=== PATIENT | male | born 1985 | race Caucasian/White ===

== ENCOUNTER 2017-01-19 17:25 | Emergency (ER) | payer MEDICAID ==
[~2017-01-19] VITALS: Ht 175.3 cm; Wt 101.5 kg
[~2017-01-19 17:25] MED LIST: NO HOME MEDICATIONS; NORCO 325 MG-7.1 TAB PO; PROMETHAZINE12.5 M5 PO
[2017-01-19 17:33] VITALS: BP 131/75; PULSE 104; TEMP 99
[2017-01-19] MEDS ORDERED: PREDNISONE20 MG PO (17:54)
== END 2017-01-19 18:04 | disposition home or self-care (01) ==
LOC: COL.ER 17:25
DX: L23.7 Allergic contact dermatitis due to plants, except food (principal); J45.909 Unspecified asthma, uncomplicated; F17.210 Nicotine dependence, cigarettes, uncomplicated
CPT/HCPCS: J7512

== ENCOUNTER 2017-07-03 14:25 | Emergency (ER) | payer MEDICAID ==
[~2017-07-03] VITALS: Ht 180.3 cm; Wt 113.6 kg
[~2017-07-03 14:25] MED LIST changes: +PREDNISONE20 MG PO
[2017-07-03 14:32] VITALS: BP 133/94; PULSE 73; TEMP 98.3
== END 2017-07-03 18:10 | disposition home or self-care (01) ==
LOC: COL.ER 14:25
DX: S69.92XA Unspecified injury of left wrist, hand and finger(s), initial encounter (principal); S69.91XA Unspecified injury of right wrist, hand and finger(s), initial encounter; F17.210 Nicotine dependence, cigarettes, uncomplicated; W22.01XA Walked into wall, initial encounter

== ENCOUNTER 2018-07-10 13:47 | Emergency (ER) | payer SELFPAY ==
[~2018-07-10] VITALS: Ht 180.3 cm; Wt 122.7 kg
[2018-07-10 13:51] VITALS: BP 138/90; TEMP 98.9
[2018-07-10] MEDS ORDERED: PREDNISONE20 MG PO (15:29)
[2018-07-10 15:36] VITALS: PULSE 88
== END 2018-07-10 15:40 | disposition home or self-care (01) ==
LOC: COL.ER 13:47
DX: J20.9 Acute bronchitis, unspecified (principal); J45.909 Unspecified asthma, uncomplicated; F17.210 Nicotine dependence, cigarettes, uncomplicated
CPT/HCPCS: J7512

== ENCOUNTER 2019-01-18 18:17 | Emergency (ER) | payer SELFPAY ==
[~2019-01-18] VITALS: Ht 180.3 cm; Wt 81.8 kg
[2019-01-18 18:20] VITALS: BP 129/65
[2019-01-18] MEDS ORDERED: EXCEDRIN1 TAB PO (18:43)
[2019-01-18] MEDS ORDERED: NORCO 325 MG-51 TAB PO (19:13)
[2019-01-18 21:12] VITALS: PULSE 65; TEMP 98
== END 2019-01-18 21:03 | disposition home or self-care (01) ==
LOC: COL.ER 18:17
DX: S62.327A Displaced fracture of shaft of fifth metacarpal bone, left hand, initial encounter for closed fracture (principal); F17.210 Nicotine dependence, cigarettes, uncomplicated; W22.8XXA Striking against or struck by other objects, initial encounter; Y92.009 Unspecified place in unspecified non-institutional (private) residence as the place of occurrence of the external cause
CPT/HCPCS: Q4021

== ENCOUNTER 2021-05-04 20:47 | Emergency (ER) | payer BC ==
[~2021-05-04] VITALS: Ht 180.3 cm; Wt 95.5 kg
[~2021-05-04 20:47] MED LIST changes: +EXCEDRIN1 TAB PO; +NORCO 325 MG-51 TAB PO
[2021-05-04 20:56] VITALS: TEMP 97.2
[2021-05-04] MEDS ORDERED: NAPROSYN500 MG PO (22:03)
[2021-05-04 22:15] VITALS: BP 124/81; PULSE 72
== END 2021-05-04 22:15 | disposition home or self-care (01) ==
LOC: COL.ER 20:47
DX: M25.532 Pain in left wrist (principal); M25.522 Pain in left elbow

== ENCOUNTER 2021-06-06 20:48 | Emergency (ER) | payer BC ==
[~2021-06-06] VITALS: Ht 180.3 cm; Wt 122.7 kg
[~2021-06-06 20:48] MED LIST changes: +NAPROSYN500 MG PO
[2021-06-06 21:06] VITALS: TEMP 97.5
[2021-06-06 22:24] VITALS: BP 126/99; PULSE 83
== END 2021-06-06 22:20 | disposition home or self-care (01) ==
LOC: COL.ER 20:48
DX: R05.9 Cough, unspecified (principal); J45.909 Unspecified asthma, uncomplicated; F17.200 Nicotine dependence, unspecified, uncomplicated; Z20.822 Contact with and (suspected) exposure to COVID-19